=== PATIENT | female | born 1975 | race Two or more races ===

== ENCOUNTER 2023-11-20 20:10 | Emergency (ER) | payer MEDICAID, OTHER ==
[~2023-11-20] VITALS: Ht 165.1 cm; Wt 132.8 kg
[2023-11-20 20:20] VITALS: BP 158/99; PULSE 101; RESP 16; O2SAT 100
[2023-11-20] MEDS ORDERED: CYCL-839 PO (22:26)
[2023-11-20] MEDS ORDERED: OXY10CRT PO (22:26)
[2023-11-20] MEDS: KETOROLAC TROMETH 60MG/2ML VIAL IM ONE (22:41)
[2023-11-21] MEDS ORDERED: HYDR-4798 PO (18:21)
== END 2023-11-20 22:47 | disposition home or self-care (01) ==
LOC: ER 20:10
DX: M25.512 Pain in left shoulder (principal); G89.29 Other chronic pain; M54.50 Low back pain, unspecified; Z88.0 Allergy status to penicillin
CPT/HCPCS: 96372; 99283; J1885

== ENCOUNTER 2023-11-24 09:51 | Emergency (ER) | payer MEDICAID ==
[~2023-11-24] VITALS: Ht 165.1 cm; Wt 134.0 kg
[~2023-11-24 09:51] MED LIST: CYCL-839 PO; HYDR-4798 PO
[2023-11-24 12:31] VITALS: BP 107/72; PULSE 86; RESP 18; TEMP 98.4; O2SAT 98
[2023-11-24] MEDS ORDERED: NAPR-746 PO (13:44)
== END 2023-11-24 14:04 | disposition home or self-care (01) ==
LOC: ER 09:56
DX: M54.2 Cervicalgia (principal); Z88.0 Allergy status to penicillin; Z88.6 Allergy status to analgesic agent
CPT/HCPCS: 72040

== ENCOUNTER 2024-07-01 16:41 | Emergency (ER) | payer MEDICAID ==
[~2024-07-01] VITALS: Ht 165.1 cm; Wt 122.5 kg
[~2024-07-01 16:41] MED LIST changes: +NAPR-746 PO
[2024-07-01] MEDS ORDERED: IBU600T PO (17:23)
--- NOTE | 2024-07-01 17:24 | ED.PDOC ---
History of Present Illness HPI Comments needs motrin refill Chief Complaint: Back Pain Comments pt takes motrin for chronic low back pain. she is out of them and needs a refill. no new symptoms Time Seen by MD: 16:49 Primary Care Provider: WHENER Reviewed Notes: Nurses Notes, Medications Allergies: Coded Allergies: Ketorolac Tromethamine (Verified Allergy, Mild, 11/24/23) Naproxen (Verified Allergy, Unknown, 11/24/23) Penicillins (Verified Allergy, Unknown, 11/20/23) Uncoded Allergies: (steroids) (Allergy, Unknown, 11/20/23) Home Meds Active Scripts Naproxen (Naproxen) 500 Mg Tab, 500 MG PO BIDPC for 14 Days, #28 TAB 0 Refills Prov:ALFREDO ROSENTHAL HAM FACER 11/24/23 Hydrocodone-Acetaminophen (Hydrocodone Bitartrate/AC 10-325 mg) 1 Tab Tab, 1 TAB PO Q6HPRN PRN, #10 TAB Prov:TOM GARCIA PAC 11/21/23 Cyclobenzaprine Hcl (Cyclobenzaprine Hcl) 10 Mg Tab, 10 MG PO TID, #15 TAB Prov:TOM GARCIA PAC 11/20/23 Information Source: Patient Mode of Arrival: Ambulatory Severity: Mild Timing: Other (chronic) Duration: Since onset Past Medical History PAST MEDICAL HISTORY: Denies Past Medical History (Other): chronic low back pain Surgical History: Denies all surgeries LIGHTER History: No Pertinent LIGHTER History Family History Family History: Reviewed,noncontributory to illness, No family hx of Cancer, No family hx of DM, No family hx of Heart av, No family hx of HTN, No family hx ofKidney av, No family hx of Liver av, No family hx of Lung av, No family hx of Stroke Social History Smoker: Non-Smoker Alcohol: Denies ETOH Use Drugs: Denies Drug Use Constitutional: denies: chills, diaphoresis, fatigue, fever, malaise, sweats, weakness, others EENTM: denies: blurred vision, double vision, ear bleeding, ear discharge, ear drainage, ear pain, ear ringing, eye pain, eye redness, hearing loss, mouth pain, mouth swelling, nasal discharge, nose bleeding, nose congestion, nose pain, photophobia, tearing, throat pain, throat swelling, voice changes, others Respiratory: denies: cough, hemoptysis, orthopnea, SOB at rest, shortness of breath, SOB with excertion, stridor, wheezing, others Cardiovascular: denies: chest pain, dizzy spells, diaphoresis, Dyspnea on exertion, edema, irregular heart beat, left arm pain, lightheadedness, palpitations, PND, syncope, others Gastrointestinal: denies: abdomen distended, abdominal pain, blood streaked bowels, constipated, diarrhea, dysphagia, difficulty swallowing, hematemesis, melena, nausea, poor appetite, poor fluid intake, rectal bleeding, rectal pain, vomiting, others Genitourinary: denies: abnormal vagina bleeding, burning, dyspareunia, dysuria, flank pain, frequency, hematuria, incontinence, pain, , vagina discharge, urgency, others Neurological: denies: dizziness, fainting, headache, left sided numbness, left sided weakness, numbness, paresthesia, pre-existing deficit, right sided numbness, right sided weakness, seizure, speech problems, tingling, tremors, weakness, others Musculoskeletal: reports: back pain; denies: gout, joint pain, joint swelling, muscle pain, muscle stiffness, neck pain, others Integumetry: denies: bruises, change in color, change in hair/nails, dryness, laceration, lesions, lumps, rash, wounds, others Allergic/Immunocompromised: denies: Difficulty Healing, Frequent Infections, Hives, Itching, others Hematologic/Lymphatic: denies: anemia, blood clots, easy bleeding, easy bruising, swollen glands, others Endocrine: denies: excessive hunger, excessive sweating, excessive thirst, excessive urination, flushing, intolerance to cold, intolerance to heat, unexplained weight gain, unexplained weight loss, others Psychiatric: denies: anxiety, bipolar disorder, depression, hopeless, panic disorder, schizophrenia, sleepless, suicidal, others All Other Systems: Reviewed and Negative Physical Exam General Appearance: No Apparent Distress, Normal HEENT: Normal ENT Inspection, Pharynx Normal, TMs Normal Neck: Full Range of Motion, Non-Tender, Normal, Normal Inspection Respiratory: Chest Non-Tender, Lungs Clear, No Accessory Muscle Use, No Respiratory Distress, Normal Breath Sounds Cardiovascular: No Edema, No JVD, No Murmur, No Gallop, Normal Peripheral Pulses, Regular Rate/Rhythm Breast Exam: Deferred Gastrointestinal: No Organomegaly, Non Tender, No Pulsatile Mass, Normal Bowel Sounds, Soft Genitalia: Deferred Pelvic: Deferred Rectal: Deferred Extremities: No calf tenderness, Normal capillary refill, Normal inspection, Normal range of motion, Non-tender, No pedal edema Musculoskeletal : Apperance: Normal Neurologic: Alert, occupational therapy professor II-XII nml as Tested, No Motor Deficits, Normal Affect, Normal Mood, No Sensory Deficits Cerebellar Function: Normal Reflexes: Normal Skin: Dry, Normal Color, Warm Lymphatic: No Adenopathy Was a procedure done? Was a procedure done?: No Differential Dx Considerations may include: chronic lbp, medication refill. X-Ray, Labs, Meds, VS Vital Signs Date Time Temp Pulse Resp B/P (MAP) Pulse Ox O2 Delivery O2 Flow Rate FiO2 07/01/24 17:17 98.4 100 16 125/86 (99) 98 Time of 1ST Reevaluation: 17:22 Reevaluation 1ST: Unchanged Patient Education/Counseling: Diagnosis, Treatment, Prognosis, Need For Follow Up Family Education/Counseling: No Family Present Departure 1 Departure Time of Disposition: 17:22 Impression: Primary Impression: Chronic low back pain Qualified Codes: M54.50 - Low back pain, unspecified; G89.29 - Other chronic pain Disposition: 01 HOME / SELF CARE / HOMELESS Condition: Good e-Prescriptions Ibuprofen Micronized (MOTRIN TABLET) 600 Mg Tb 600 MG PO TID PRN for 10 Days, #30 TAB *Black box warning-NSAIDS can increase risk of MS & hypertension, GI irritation, ulceration, bleed, perferation. Do not use post cardiac surgery. Use short duration/lowest effective dose. Prov: TOMI REYES MD 07/01/24 Discharged With: Self Critical Care Note Critical Care Time?: No Stability Stability form required: No TOMI REYES MD Jul 01, 2024 17:24
[2024-07-01] MEDS: KETOROLAC TROMETH 30 MG/ML 1ML VIAL IM ONE (19:26)
[2024-07-01 19:27] VITALS: BP 108/58; PULSE 73; RESP 18; TEMP 98; O2SAT 98
== END 2024-07-01 19:59 | disposition home or self-care (01) ==
LOC: ER 16:44
DX: G89.29 Other chronic pain (principal); M54.50 Low back pain, unspecified; Z88.0 Allergy status to penicillin; Z88.1 Allergy status to other antibiotic agents; Z79.899 Other long term (current) drug therapy
CPT/HCPCS: 96372; 99283; J1885

== ENCOUNTER 2024-07-04 14:59 | Emergency (ER) | payer MEDICAID ==
[~2024-07-04] VITALS: Ht 165.1 cm; Wt 121.3 kg
[~2024-07-04 14:59] MED LIST changes: +IBU600T PO
--- NOTE | 2024-07-04 15:38 | DVH ---
CHEST RADIOGRAPH Indication: cough Technique: Frontal and lateral view of the chest was obtained Comparison: None FINDINGS: Lines and Tubes: None Lungs: Clear Pleura: No effusion. No pneumothorax. Cardiomediastinal contours: Unremarkable Bones: Unremarkable IMPRESSION: No evidence of acute disease.
--- NOTE | 2024-07-04 15:42 | ED.PDOC ---
SOB-HPI HPI Comments 48y F who presents to the ED for chief complaint of cough. Pt has been having cough, fever and wheezing for the past 2 days. Pt otherwise denies any shortness of breath, chest pain or any associated symptoms. Pt has sick contact of daughter. Pt otherwise in no noted respiratory distress. Pt has stable vitals with 02 sat of 95 % on room air with all other vitals in normal range. Pt otherwise denies any other symptoms at this time. Chief Complaint: Cough Time Seen by MD: 15:39 Primary Care Provider: LORRI Adkins notes: Nurses Notes Information Source: Patient Mode of Arrival: Ambulatory Brought in by: self Severity: Moderate Timing: Days Duration: Since onset Context: At Rest PE Risk Factors: None History of: Recent URI Prehospital treatment: None Modifying Factors: Nothing Associated Signs and Symptoms: Fever, Wheeze, Cough If cough with SOB: Non-Productive Past Medical History PAST MEDICAL HISTORY: HTN Past Medical History (Other): chronic back pain Surgical History: Surgical History (Other): R oophrectomy CAFETERIA MONITOR History: No Pertinent CAFETERIA MONITOR History Family History Family History: Reviewed,noncontributory to illness, No family hx of Cancer, No family hx of DM, No family hx of Heart av, No family hx of HTN, No family hx ofKidney av, No family hx of Liver av, No family hx of Lung av, Family hx of stroke Social History Smoker: Cigarettes Alcohol: Occasionally Drugs: Denies Drug Use Lives In: Home Constitutional: reports: fever; denies: chills, diaphoresis, fatigue, malaise, sweats, weakness, others EENTM: reports: throat pain; denies: blurred vision, double vision, ear bleeding, ear discharge, ear drainage, ear pain, ear ringing, eye pain, eye redness, hearing loss, mouth pain, mouth swelling, nasal discharge, nose bleeding, nose congestion, nose pain, photophobia, tearing, throat swelling, voice changes, others Respiratory: reports: cough; denies: hemoptysis, orthopnea, SOB at rest, shortness of breath, SOB with excertion, stridor, wheezing, others Cardiovascular: denies: chest pain, dizzy spells, diaphoresis, Dyspnea on exertion, edema, irregular heart beat, left arm pain, lightheadedness, palpitations, PND, syncope, others Gastrointestinal: denies: abdomen distended, abdominal pain, blood streaked bowels, constipated, diarrhea, dysphagia, difficulty swallowing, hematemesis, melena, nausea, poor appetite, poor fluid intake, rectal bleeding, rectal pain, vomiting, others Genitourinary: denies: abnormal vagina bleeding, burning, dyspareunia, dysuria, flank pain, frequency, hematuria, incontinence, pain, , vagina discharge, urgency, others Neurological: denies: dizziness, fainting, headache, left sided numbness, left sided weakness, numbness, paresthesia, pre-existing deficit, right sided numbness, right sided weakness, seizure, speech problems, tingling, tremors, weakness, others Musculoskeletal: denies: back pain, gout, joint pain, joint swelling, muscle pain, muscle stiffness, neck pain, others Integumetry: denies: bruises, change in color, change in hair/nails, dryness, laceration, lesions, lumps, rash, wounds, others Allergic/Immunocompromised: denies: Difficulty Healing, Frequent Infections, Hives, Itching, others Hematologic/Lymphatic: denies: anemia, blood clots, easy bleeding, easy bruising, swollen glands, others Endocrine: denies: excessive hunger, excessive sweating, excessive thirst, excessive urination, flushing, intolerance to cold, intolerance to heat, unexplained weight gain, unexplained weight loss, others Psychiatric: denies: anxiety, bipolar disorder, depression, hopeless, panic disorder, schizophrenia, sleepless, suicidal, others All Other Systems: Reviewed and Negative Physical Exam General Appearance: No Apparent Distress HEENT: Normal ENT Inspection, Pharynx Normal, TMs Normal Neck: Full Range of Motion, Non-Tender, Normal, Normal Inspection Respiratory: Chest Non-Tender, Lungs Clear, No Accessory Muscle Use, No Respiratory Distress, Normal Breath Sounds Cardiovascular: No Edema, No JVD, No Murmur, No Gallop, Normal Peripheral Pulses, Regular Rate/Rhythm Breast Exam: Deferred Gastrointestinal: No Organomegaly, Non Tender, No Pulsatile Mass, Normal Bowel Sounds, Soft Genitalia: Deferred Pelvic: Deferred Rectal: Deferred Extremities: No calf tenderness, Normal capillary refill, Normal inspection, Normal range of motion, Non-tender, No pedal edema Musculoskeletal : Apperance: Normal Neurologic: Alert, nurse liaison II-XII nml as Tested, No Motor Deficits, Normal Affect, Normal Mood, No Sensory Deficits Cerebellar Function: Normal Reflexes: Normal Skin: Dry, Normal Color, Warm Lymphatic: No Adenopathy Was a procedure done? Was a procedure done?: No Differential Dx Differential Diagnosis: Asthma, Bronchitis, CHF, COPD, Pharyngitis, URI Comments influenza A and B, COVID X-Ray, Labs, Meds, VS Vital Signs Date Time Temp Pulse Resp B/P (MAP) Pulse Ox O2 Delivery O2 Flow Rate FiO2 07/04/24 15:29 18 95 Room Air* 0 21 07/04/24 15:15 98.9 94 18 115/69 (84) 95 Lab Test 07/04/24 18:45 Range/Units Influenza Type A Antigen Negative Negative Influenza Type B Antigen Negative Negative CHEST RADIOGRAPH IMPRESSION: No evidence of acute disease. The influenza a and influenza B are negative The patient was being discharged on Zithromax The patient will return to the emergency department's with a diagnosis of acute bronchitis The patient understands and agrees with the management Images Reviewed?: Images reviewed and evaluated by me Time of 1ST Reevaluation: 16:10 Reevaluation 1ST: Unchanged Patient Education/Counseling: Diagnosis, Treatment, Prognosis, Need For Follow Up Family Education/Counseling: No Family Present Additional Information - I reviewed the following notes from patient's past medical encounters: - The following tests were ordered, and results were reviewed by me: (Labs, X- Ray, EKG): Influenza A and B, chest x-ray - Additional information was gathered from interviewing the following independent Historian: (Family, Other Providers, EMT): none - I reviewed and agreed with the following test results read by other provider: (X-ray, CT, US): radiologist - I discussed treatments and results with medical personnel and: (consultants, family): none Departure 1 Departure Time of Disposition: 20:11 Impression: Primary Impression: Acute bronchitis Qualified Codes: J20.9 - Acute bronchitis, unspecified Disposition: 01 HOME / SELF CARE / HOMELESS Condition: Fair Discharged With: Self Critical Care Note Critical Care Time?: No Stability Stability form required: No Heart Score Heart Score: Heart Score Response (Comments) Value History N/A 0 EKG N/A 0 Age N/A 0 Risk Factors N/A 0 Troponin N/A 0 Total 0 I personally scribed for ANNETTE RAMACHANDRAN MD ([email or web address]) on 07/04/24 at 15:42. E lectronically submitted by Christi Gant ([email or web address]). I personally scribed for ANNETTE RAMACHANDRAN MD ([email or web address]) on 07/04/24 at 15:43. Electronically submitted by Christi Gant ([email or web address]). ANNETTE RAMACHANDRAN MD Jul 04, 2024 15:42
[2024-07-04 20:05] LABS: Rapid Influenza A Negative (Negative); Rapid Influenza B Negative (Negative)
[2024-07-04] MEDS ORDERED: AZIT500T PO (20:12)
[2024-07-04 21:00] VITALS: BP 141/80; PULSE 84; RESP 84; TEMP 98.8; O2SAT 98
== END 2024-07-04 21:35 | disposition home or self-care (01) ==
LOC: ER 14:59
DX: J20.9 Acute bronchitis, unspecified (principal); G89.29 Other chronic pain; M54.9 Dorsalgia, unspecified; I10 Essential (primary) hypertension; F17.210 Nicotine dependence, cigarettes, uncomplicated
CPT/HCPCS: 71046; 87804

== ENCOUNTER 2024-07-27 16:49 | Emergency (ER) | payer MEDICAID ==
[~2024-07-27] VITALS: Ht 165.1 cm; Wt 116.5 kg
[~2024-07-27 16:49] MED LIST changes: +AZIT500T PO
--- NOTE | 2024-07-27 17:28 | ED.PDOC ---
History of Present Illness HPI Comments 48 y/o F presents with c/o productive cough, today. Patient endorses on persisting cough with "thick" and "yellow" phlegm production for the past 2.5x weeks following initial onset. She comments on, today, having associated "burning" sensation to her chest. Patient also reports previous ED visit at [facility] for same complaint on 07/04/24, where she was diagnosed with bronchitis and discharged with antibiotic prescription medications, that she reports having no relief or improvement of with use. Patient denies having any shortness of breath, fever, chills, headache, dizziness, or other associated symptoms or modifiers at this time. Chief Complaint: Cough Time Seen by MD: 17:15 Primary Care Provider: LISA Reviewed Notes: Nurses Notes, Medications, Allergies Allergies: Coded Allergies: Naproxen (Verified Allergy, Unknown, 11/24/23) Penicillins (Verified Allergy, Unknown, 11/20/23) Uncoded Allergies: (steroids) (Allergy, Unknown, 11/20/23) Home Meds Active Scripts Azithromycin (Zithromax) 500 Mg Tab, 1 TAB PO DAILY, #5 TAB Prov:ANNETTE RAMACHANDRAN MD 07/27/24 Azithromycin (Zithromax) 500 Mg Tab, 1 TAB PO DAILY, #5 TAB Prov:ANNETTE RAMACHANDRAN MD 07/04/24 Ibuprofen Micronized (MOTRIN TABLET) 600 Mg Tb, 600 MG PO TID PRN for 10 Days, #30 TAB *Black box warning-NSAIDS can increase risk of MS & hypertension, GI irritation, ulceration, bleed, perferation. Do not use post cardiac surgery. Use short duration/lowest effective dose. Prov:TOMI REYES MD 07/01/24 Naproxen (Naproxen) 500 Mg Tab, 500 MG PO BIDPC for 14 Days, #28 TAB 0 Refills Prov:ALFREDO ROSENTHAL MANAGER POLICY 11/24/23 Hydrocodone-Acetaminophen (Hydrocodone Bitartrate/AC 10-325 mg) 1 Tab Tab, 1 TAB PO Q6HPRN PRN, #10 TAB Prov:TOM GARCIA PAC 11/21/23 Cyclobenzaprine Hcl (Cyclobenzaprine Hcl) 10 Mg Tab, 10 MG PO TID, #15 TAB Prov:TOM GARCIA 11/20/23 Information Source: Patient Mode of Arrival: Ambulatory Severity: Moderate Timing: Weeks Duration: Since onset Prehospital treatment: Other (see HPI) Past Medical History PAST MEDICAL HISTORY: HTN Past Medical History (Other): morbid obesity, sciatica Surgical History: Surgical History (Other): 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 Cysts (right ovarian cysts s/p right oophorectomy) Family History Family History: Reviewed,noncontributory to illness, No family hx of Cancer, No family hx of DM, No family hx of Heart av, No family hx of HTN, No family hx ofKidney av, No family hx of Liver av, No family hx of Lung av, Family hx of stroke Social History Smoker: Cigarettes Alcohol: Occasionally Drugs: Denies Drug Use Lives In: Home Constitutional: denies: chills, diaphoresis, fatigue, fever, malaise, sweats, weakness, others EENTM: denies: blurred vision, double vision, ear bleeding, ear discharge, ear drainage, ear pain, ear ringing, eye pain, eye redness, hearing loss, mouth pain, mouth swelling, nasal discharge, nose bleeding, nose congestion, nose pain, photophobia, tearing, throat pain, throat swelling, voice changes, others Respiratory: reports: cough; denies: hemoptysis, orthopnea, SOB at rest, shortness of breath, SOB with excertion, stridor, wheezing, others Cardiovascular: denies: chest pain, dizzy spells, diaphoresis, Dyspnea on exertion, edema, irregular heart beat, left arm pain, lightheadedness, palpitations, PND, syncope, others Gastrointestinal: denies: abdomen distended, abdominal pain, blood streaked bowels, constipated, diarrhea, dysphagia, difficulty swallowing, hematemesis, melena, nausea, poor appetite, poor fluid intake, rectal bleeding, rectal pain, vomiting, others Genitourinary: denies: abnormal vagina bleeding, burning, dyspareunia, dysuria, flank pain, frequency, hematuria, incontinence, pain, , vagina discha rge, urgency, others Neurological: denies: dizziness, fainting, headache, left sided numbness, left sided weakness, numbness, paresthesia, pre-existing deficit, right sided numbness, right sided weakness, seizure, speech problems, tingling, tremors, weakness, others Musculoskeletal: denies: back pain, gout, joint pain, joint swelling, muscle pain, muscle stiffness, neck pain, others Integumetry: denies: bruises, change in color, change in hair/nails, dryness, laceration, lesions, lumps, rash, wounds, others Allergic/Immunocompromised: denies: Difficulty Healing, Frequent Infections, Hives, Itching, others Hematologic/Lymphatic: denies: anemia, blood clots, easy bleeding, easy bruising, swollen glands, others Endocrine: denies: excessive hunger, excessive sweating, excessive thirst, excessive urination, flushing, intolerance to cold, intolerance to heat, unexplained weight gain, unexplained weight loss, others Psychiatric: denies: anxiety, bipolar disorder, depression, hopeless, panic disorder, schizophrenia, sleepless, suicidal, others All Other Systems: Reviewed and Negative (negative unless otherwise stated above or in HPI) Physical Exam General Appearance: No Apparent Distress HEENT: Normal ENT Inspection, Pharynx Normal, TMs Normal Neck: Full Range of Motion, Non-Tender, Normal, Normal Inspection Respiratory: Chest Non-Tender, Lungs Clear, No Accessory Muscle Use, No Respiratory Distress, Normal Breath Sounds Cardiovascular: No Edema, No JVD, No Murmur, No Gallop, Normal Peripheral Pulses, Regular Rate/Rhythm Breast Exam: Deferred Gastrointestinal: No Organomegaly, Non Tender, No Pulsatile Mass, Normal Bowel Sounds, Soft Genitalia: Deferred Pelvic: Deferred Rectal: Deferred Extremities: No calf tenderness, Normal capillary refill, Normal inspection, Normal range of motion, Non-tender, No pedal edema Musculoskeletal : Apperance: Normal Neurologic: Alert, slag skimmer II-XII nml as Tested, No Motor Deficits, Normal Affect, Normal Mood, No Sensory Deficits Cerebellar Function: Normal Reflexes: Normal Skin: Dry, Normal Color, Warm Lymphatic: No Adenopathy Was a procedure done? Was a procedure done?: No Differential Dx Considerations may include: bronchitis, viral syndrome, URI, pleural effusions, tobacco abuse X-Ray, Labs, Meds, VS Vital Signs Date Time Temp Pulse Resp B/P (MAP) Pulse Ox O2 Delivery O2 Flow Rate FiO2 07/27/24 17:14 98.5 85 20 133/75 (94) 96 07/27/24 17:14 20 96 Room Air* 0 21 The chest x-ray shows no sign of any infiltrates but there is some peribronchial cuffing. The patient was being discharged The patient will follow up with the primary care doctor The patient will return to the emergency department's condition worsens The patient was placed on Zithromax. Images Reviewed?: Images reviewed and evaluated by me Time of 1ST Reevaluation: 17:45 Reevaluation 1ST: Unchanged Patient Education/Counseling: Diagnosis, Treatment, Prognosis, Need For Follow Up Family Education/Counseling: No Family Present Departure 1 Departure Time of Disposition: 19:14 Impression: Primary Impression: Acute bronchitis Qualified Codes: J20.9 - Acute bronchitis, unspecified Disposition: 01 HOME / SELF CARE / HOMELESS Condition: Fair e-Prescriptions Azithromycin (Zithromax) 500 Mg Tab 1 TAB PO DAILY, #5 TAB Prov: ANNETTE RAMACHANDRAN MD 07/27/24 Discharged With: Self Critical Care Note Critical Care Time?: No Stability Stability form required: No Heart Score Heart Score: Heart Score Response (Comments) Value History N/A 0 EKG N/A 0 Age N/A 0 Risk Factors N/A 0 Troponin N/A 0 Total 0 I personally scribed for ANNETTE RAMACHANDRAN MD ([email or web address]) on 07/27/24 at 17:28. Electronically submitted by John Armas ([email or web address]). ANNETTE RAMACHANDRAN MD Jul 27, 2024 17:28
[2024-07-27 22:35] VITALS: BP 135/78; PULSE 86; RESP 14; TEMP 97.6; O2SAT 98
== END 2024-07-27 19:11 | disposition home or self-care (01) ==
LOC: ER 16:49
DX: J20.9 Acute bronchitis, unspecified (principal); I10 Essential (primary) hypertension; F17.210 Nicotine dependence, cigarettes, uncomplicated; E66.01 Morbid (severe) obesity due to excess calories; Z98.890 Other specified postprocedural states; Z90.721 Acquired absence of ovaries, unilateral; Z88.0 Allergy status to penicillin; Z88.6 Allergy status to analgesic agent

== ENCOUNTER 2024-10-12 19:14 | Emergency (ER) | payer MEDICAID ==
[~2024-10-12] VITALS: Ht 165.1 cm; Wt 111.6 kg
[2024-10-12 19:30] VITALS: BP 111/66; PULSE 94; RESP 18; TEMP 98.1; O2SAT 96
--- NOTE | 2024-10-12 19:47 | DVH ---
CLINICAL INDICATION: right ankle pain TECHNIQUE: 3 radiographic views of the right ankle were obtained. Comparison: None FINDINGS/IMPRESSION: There is no evidence of acute fracture or dislocation. The visualized joint space is well maintained. The alignment is anatomical. There is no radiopaque foreign body.
== END 2024-10-12 21:48 | disposition left against medical advice (07) ==
LOC: ER 19:14
DX: M25.571 Pain in right ankle and joints of right foot (principal); Z53.21 Procedure and treatment not carried out due to patient leaving prior to being seen by health care provider
CPT/HCPCS: 73610